=== PATIENT | female | born 1945 | race Hispanic/Latino ===

== ENCOUNTER → 2018-01-11 | Outpatient (CLI) | payer MEDICARE ==
[~2018-01-11] MED LIST: CHOL200013 PO; DOCU250C90 PO; GABA300S PO; IRON1CAP32 PO; METF500T6 PO; MONT10TA24 PO
[2018-01-11 12:44] LABS: CREATININE 0.7 mg/dL (0.5-1.5)
== END | disposition home or self-care (01) ==
LOC: LAB 11:43
PROVIDERS: ATTEND Internal Medicine Cardiovascular Disease
DX: E11.9 Type 2 diabetes mellitus without complications (principal); I10 Essential (primary) hypertension; R07.89 Other chest pain; R42 Dizziness and giddiness
CPT/HCPCS: 36415; 82565; 84520

== ENCOUNTER → 2018-01-13 | Outpatient (CLI) | payer MEDICARE ==
[~2018-01-13] MED LIST changes: +IOPAMIDOL-370 100 ML VIAL IV ONE
== END | disposition home or self-care (01) ==
LOC: OIH 08:33
PROVIDERS: ATTEND Internal Medicine Cardiovascular Disease
DX: I67.1 Cerebral aneurysm, nonruptured (principal); R42 Dizziness and giddiness; M54.2 Cervicalgia
CPT/HCPCS: 70496; 70498; Q9967

== ENCOUNTER 2020-01-27 20:44 | Emergency (ER) | payer MEDICARE ==
[2020-01-27] MEDS ORDERED: ONDANSETRON HCL 4 MG/2 ML VIAL ONE (22:54)
[2020-01-27] MEDS ORDERED: MORPHINE SULFATE 2 MG/ML 1ML SYG ONE (22:54)
[2020-01-28] MEDS ORDERED: IOHEXOL-350 75 ML VIAL IV ONE (01:21)
[2020-01-28] MEDS ORDERED: LACTULOSE 20 GM/30 ML UDCUP ONE (02:35)
== END 2020-01-28 02:56 | disposition home or self-care (01) ==
LOC: EDH 20:44
DX: K59.00 Constipation, unspecified (principal); R10.11 Right upper quadrant pain; E11.9 Type 2 diabetes mellitus without complications; I10 Essential (primary) hypertension; M19.90 Unspecified osteoarthritis, unspecified site
CPT/HCPCS: 36415; 71046; 74177; 76705; 80053; 81001; 82150; 82550; 83690; 84484; 85025; 93005; 96374; 96375; 99285; J2405; Q9967

== ENCOUNTER 2020-01-31 06:09 | Day surgery (SDC) | payer MEDICARE ==
[2020-01-26 10:46] LABS: BASOPHILS % (AUTO) 0.2 % (0.0-5.0); EOSINOPHILS % (AUTO) 0.7 % (0.0-8.0); HEMATOCRIT 35.3 % (36-48); MEAN CORPUSCULAR HGB CONC 33.4 g/dL (32.0-36.0); MEAN CORPUSCULAR VOLUME 92.7 fL (79-99); MONOCYTES % (AUTO) 8.9 % (3.0-13.0); PLATELET COUNT (AUTO) 67 K/uL (130-400); RED BLOOD CELL COUNT(AUTO) 3.81 MIL/uL (4.00-5.50); RED CELL DISTRIBUTION WIDTH 12.6 % (11.0-15.5); WHITE BLOOD COUNT (AUTO) 4.3 K/uL (4.8-10.8)
[2020-01-26 10:55] LABS: APPEARANCE,URINE Clear (CLEAR); BILIRUBIN,URINE Small (NEGATIVE); COLOR,URINE Dark Yellow (YELLOW); GLUCOSE, URINE (UA) Negative (NEGATIVE); KETONES,URINE Trace mg/dL (NEGATIVE); LEUKOCYTE ESTERASE ,URINE Moderate (NEGATIVE); NITRATE,URINE Negative (NEGATIVE); OCCULT BLOOD,URINE Negative (NEGATIVE); PROTEIN,URINE Negative (NEGATIVE)
[2020-01-26 10:55] LABS: CREATININE 0.7 mg/dL (0.5-1.5); POTASSIUM 4.3 mmol/L (3.5-5.1)
[2020-01-26 11:06] LABS: INR 1.04 (0.85-1.15); PARTIAL THROMBOPLASTIN TIME 28.3 SEC (26.3-35.5); PROTHROMBIN TIME 11.2 SEC (9.6-11.6)
[2020-01-26 11:20] LABS: RBC,URINE 0-1 /HPF (0-1)
[2020-01-26 11:21] LABS: BACTERIA,URINE Moderate /HPF (None Seen); WBC,URINE TNTC /HPF (0-1)
--- NOTE | 2020-01-30 16:00 | NUR ---
RE: POSITIVE URINE CULTURE INFORMED STEVIE ZAVALETA REGARDING POSITIVE URINE CULTURE. RECEIVED ORDERS FOR LEVAQUIN 500MG IV X 1 DOSE WHEN PATIENT ARRIVES TO DAY PATIENT.
[~2020-01-31] VITALS: Ht 165.1 cm; Wt 74.4 kg
[2020-01-31] VITALS (10 sets, daily range): BP systolic 106–133; BP diastolic 42–64
[~2020-01-31 06:09] MED LIST changes: +ACETAMINOPHEN 325 MG TAB PO PRN; -CHOL200013 PO; -DOCU250C90 PO; +FEXO180T94 PO; -GABA300S PO; +INSU300I SQ; -IOPAMIDOL-370 100 ML VIAL IV ONE; -IRON1CAP32 PO; +LEVOFLOXACIN 500 MG/D5W 100 ML 100 ML IV SCH; +LORA0.5T83 PO; +LOSA25TA41 PO; +MAGN200T4 PO; -METF500T6 PO; +METO-408 PO; -MONT10TA24 PO; +MONT10TA26 PO; +OMEG-112 PO; +OMEP20CA12 PO; +PRAM0.122 PO; +SODIUM CHLORIDE 0.9% 500ML 500 ML IV SCH; +SPIR50TA5 PO; +VITA-164 PO; +ZOLP10TA2 PO; +vitamin d3 PO
[2020-01-31] MEDS ORDERED: SODIUM CHLORIDE 0.9% 1000ML 1,000 ML IV ONE (06:47)
[2020-01-31] MEDS ORDERED: LACT10SO62 PO (08:00)
[2020-01-31] MEDS ORDERED: KETO15CR2 TP (08:01)
[2020-01-31] MEDS ORDERED: IOHEXOL 350 MG/ML 100ML INFUS..BTL IV ONE (09:17)
[2020-01-31] MEDS ORDERED: HEPARIN SODIUM 1000UNIT/ML 10ML VIAL ONE (09:17)
[2020-01-31] MEDS ORDERED: SODIUM BICARB 50MEQ 50ML VIAL ONE (09:17)
[2020-01-31] MEDS ORDERED: MEPERIDINE-PF 25 MG/ML SYG ONE (09:18)
[2020-01-31] MEDS ORDERED: IOHEXOL-350 50ML VIAL IV ONE (09:18)
[2020-01-31] MEDS ORDERED: MIDAZOLAM HCL 1 MG/ML 2ML VIAL ONE (09:18)
[2020-01-31] MEDS ORDERED: LIDOCAINE HCL 2% 20ML ONE (09:18)
[2020-01-31] MEDS ORDERED: NITROGLYCERIN 2 MG/VIAL VIAL IV ONE (11:12)
[2020-01-31] MEDS ORDERED: SODIUM CHLORIDE 0.9% 1000ML 1,000 ML IV SCH (11:14)
[2020-01-31] MEDS ORDERED: DEXTROSE 50%-WATER 50 ML DISP.SYRIN IV PRN (11:15)
[2020-01-31] MEDS ORDERED: GLUCAGON 1MG KIT 1 MG ML IM PRN (11:15)
[2020-01-31] MEDS ORDERED: INSULIN HUMULIN R 100 UNIT/ML 3ML SQ SCH (11:30)
--- NOTE | 2020-01-31 14:30 | NUR ---
ALE Marti called and requested pt's cath report diagrams to be sent over to Dr. Milan office. ALE Marti stated that Dr. Hess had consulted with Dr. Milan and needed the diagrams. Diagrams faxed to the office.
--- NOTE | 2020-01-31 15:30 | NUR ---
Pt discharged home, tolerating solids/fluids, voided large amount just prior to discharge, ambulating well. Denies any nausea, severe dizziness, or pain. Right groin cath site venous/arterial is soft, nontender, dressing remains clean, dry, and intact. Pt instructed in the routine and emergency care of cath site. Pt and spouse report no further questions at this time.
== END 2020-01-31 15:30 | disposition home or self-care (01) ==
LOC: DAH 06:09 → EDSTATUS 09:00 → DAH 15:30
PROVIDERS: ATTEND Internal Medicine Cardiovascular Disease
DX: I25.10 Atherosclerotic heart disease of native coronary artery without angina pectoris (principal); I35.0 Nonrheumatic aortic (valve) stenosis; I10 Essential (primary) hypertension; E78.5 Hyperlipidemia, unspecified; E11.9 Type 2 diabetes mellitus without complications; G47.33 Obstructive sleep apnea (adult) (pediatric); M79.7 Fibromyalgia; F32.9 Major depressive disorder, single episode, unspecified; F41.9 Anxiety disorder, unspecified; Z90.710 Acquired absence of both cervix and uterus; Z90.89 Acquired absence of other organs; Z98.890 Other specified postprocedural states; Z88.8 Allergy status to other drugs, medicaments and biological substances; Z79.01 Long term (current) use of anticoagulants
CPT/HCPCS: 36415; 71045; 80048; 81001; 82948 ×2; 85025; 85610; 85730; 87077; 87088; 87186; 93005; 93460; 93567; A4215; A4216; A4221; A4222; A4223 ×3; A4606; A4663; C1760; C1769; C1893; C1894 ×2; J1644; J1956; J2175; J2250; J3490 ×3; J7030; Q9965; Q9967 ×2; 96365; 99156; 99157

== ENCOUNTER → 2020-02-23 | Outpatient (CLI) | payer MEDICARE ==
[~2020-02-23] MED LIST changes: -ACETAMINOPHEN 325 MG TAB PO PRN; +IOHEXOL 350 MG/ML 100ML INFUS..BTL IV ONE; +KETO15CR2 TP; +LACT10SO62 PO; -LEVOFLOXACIN 500 MG/D5W 100 ML 100 ML IV SCH; +METOPROLOL TARTRATE 1 MG/ML 5ML VIAL IV ONE; -SODIUM CHLORIDE 0.9% 500ML 500 ML IV SCH
== END | disposition home or self-care (01) ==
LOC: RAH 12:47
PROVIDERS: ATTEND Internal Medicine Cardiovascular Disease
DX: I70.0 Atherosclerosis of aorta (principal); R68.89 Other general symptoms and signs; I35.0 Nonrheumatic aortic (valve) stenosis; J98.11 Atelectasis; I72.8 Aneurysm of other specified arteries
CPT/HCPCS: 74174; 75574; J3490; Q9967